=== PATIENT | female | born 1995 | race Caucasian/White ===

== ENCOUNTER → 2021-10-28 | Outpatient (CLI) | payer OTHER ==
[~2021-10-28] MED LIST: AMOX250S5 PO; HYDR473S16 PO; LRT10T; tetracaine suckers PO
--- NOTE | 2021-10-28 17:07 | Diagnostic Imaging Report ---
INDICATION: anatomy survey TECHNIQUE: Multiple real-time grayscale images were obtained over the gravid uterus. COMPARISON: None FINDINGS: There is a single live intrauterine in the breech position. The placenta is anterior in location, and there is no evidence of previa or placental abruption. The heart rate is 143 beats per minute. The amount of a maximum appears visually appropriate The cervix measures 3.7 cm in length. anatomy survey was performed and the following structures are visualized and normal: Four-chamber heart, left ventricular outflow tract, stomach, kidneys, entire spine, cerebellum, cisterna magna, cerebral ventricles, umbilical cord insertion, right ventricular outflow tract, urinary bladder, profile, lips/nose and diaphragm. Due to advanced gestational age, the maternal adnexa are suboptimally evaluated. Biometrical measurements are as follows: Biparietal 4.27 cm, age 19 weeks 0 days. Head circumference 16.89 cm, age 19 weeks 4 days. Abdominal circumference 15.08 cm, age 20 weeks 3 days. Femur length 2.91 cm, age 19 weeks 0 days. Sonographic estimate age: 19 weeks 4 days. Sonographic estimated date of delivery: 03/20/2022. Estimated Weight: 304 gm (+/- 45 gm). LMP percentile: 12%. heart rate: 143 beats per minute. number: 1 of 1. IMPRESSION: Single live intrauterine patency has normal anatomy survey. Dictated by: Dictated on workstation # [id number]
== END ==
LOC: RAD 12:00
PROVIDERS: ATTEND Nurse Practitioner Women's Health
DX: Z34.02 Encounter for supervision of normal first pregnancy, second trimester (principal); Z3A.19 19 weeks gestation of pregnancy
CPT/HCPCS: 76805

== ENCOUNTER 2022-02-14 11:34 | Observation (INO) | payer OTHER ==
[~2022-02-14] VITALS: Ht 160 cm; Wt 73.7 kg
[2022-02-14 12:08] LABS: BILIRUBIN,URINE NEGATIVE (NEGATIVE); CLARITY,URINE CLEAR; COLOR,URINE YELLOW; GLUCOSE, URINE (UA) NEGATIVE (NEGATIVE); KETONES,URINE NEGATIVE (NEGATIVE); LEUKOCYTE ESTERASE ,URINE TRACE (NEGATIVE); NITRITE,URINE NEGATIVE (NEGATIVE); PH,URINE 6.5 (5-9); PROTEIN,URINE NEGATIVE (NEGATIVE)
[2022-02-14] MEDS: LACTATED RINGERS 1,000 ML IV SCH ×2 (12:15→13:20)
[2022-02-14 12:18] LABS: WBC,URINE 0-2 /HPF
[2022-02-14 12:19] LABS: AMORPHOUS SEDIMENT,UR RARE AMOR URATES /LPF; BACTERIA,URINE FEW /HPF; SQUAMOUS EPITHELIAL CELL,UR RARE /HPF
[2022-02-14 12:30] VITALS: BP 138/85
[2022-02-14] MEDS ORDERED: ACETAMINOPHEN 500 MG TAB (TYLENOL) PO PRN (14:30)
[2022-02-14] MEDS ORDERED: D5 LR IV SOLUTION 1,000 ML IV SCH (16:00)
[2022-02-14 16:51] LABS: BASOPHILS % (AUTO) 0 % (0-10); EOSINOPHILS % (AUTO) 0 % (0-10); HEMATOCRIT 31 % (35-52); HEMOGLOBIN 10.5 g/dL (11.5-16.0); LYMPHOCYTES # (AUTO) 1.7 10^3/uL (1.0-4.0); LYMPHOCYTES % (AUTO) 14 % (12-44); MEAN CORPUSCULAR HEMOGLOBIN 29 pg (25-34); MEAN CORPUSCULAR HGB CONC 34 g/dL (32-36); MEAN CORPUSCULAR VOLUME 84 fL (80-99); MEAN PLATELET VOLUME 11.1 fL (9.0-12.2); MONOCYTES # (AUTO) 0.7 10^3/uL (0.0-1.0); MONOCYTES % (AUTO) 6 % (0-12); NEUTROPHILS # (AUTO) 9.9 10^3/uL (1.8-7.8); NEUTROPHILS % (AUTO) 79 % (42-75); PLATELET COUNT 185 10^3/uL (130-400); WHITE BLOOD COUNT 12.5 10^3/uL (4.3-11.0)
--- NOTE | 2022-02-15 08:17 | Physician Query-Final Dx ---
MAYANK02/15/22 0817: Clinic Account Progress/Dx Physician Query: Please give diagnosis Please include # weeks gestation Date of Service Feb 14, 2022 at 11:34 CARMELINA CRISTINA DO 02/16/22 1304: Clinic Account Progress/Dx DIAGNOSIS: Diagnosis 36 week IUP Prolonged latent phase labor MAYANK,FebFeb 15, 2022 08:17 CARMELINA CRISTINA DO Feb 16, 2022 13:04
== END 2022-02-14 18:00 | disposition home or self-care (01) ==
LOC: LDRP 11:34 → WSo 11:34 → LDRP 15:52
PROVIDERS: ADMIT Obstetrics & Gynecology; ATTEND Obstetrics & Gynecology
DX: O63.0 Prolonged first stage (of labor) (principal); Z3A.36 36 weeks gestation of pregnancy
CPT/HCPCS: 36415; 81000; 85025; 86850; 86900; 86901; 87081; 96360; 96361

== ENCOUNTER 2022-02-22 14:20 | Inpatient (IN) | payer OTHER ==
[2022-02-22] VITALS (38 sets, daily range): BP systolic 102–154; BP diastolic 57–88
[~2022-02-22] VITALS: Ht 167 cm; Wt 74.0 kg
[2022-02-22] MEDS ORDERED: LIDOCAINE 1% INJ 20 ML VIAL IJ PRN (15:00)
[2022-02-22] MEDS ORDERED: MINERAL OIL 30 ML UDC TOP PRN (15:00)
[2022-02-22] MEDS ORDERED: D5 LR IV SOLUTION 1,000 ML IV SCH (15:00)
[2022-02-22 15:37] LABS: BASOPHILS % (AUTO) 0 % (0-10); EOSINOPHILS % (AUTO) 0 % (0-10); HEMATOCRIT 33 % (35-52); HEMOGLOBIN 11.2 g/dL (11.5-16.0); LYMPHOCYTES # (AUTO) 1.7 X 10^3 (1.0-4.0); LYMPHOCYTES % (AUTO) 14 % (12-44); MEAN CORPUSCULAR HEMOGLOBIN 29 pg (25-34); MEAN CORPUSCULAR HGB CONC 34 g/dL (32-36); MEAN CORPUSCULAR VOLUME 84 fL (80-99); MONOCYTES # (AUTO) 0.7 X 10^3 (0.0-1.0); MONOCYTES % (AUTO) 5 % (0-12); NEUTROPHILS # (AUTO) 9.6 X 10^3 (1.8-7.8); NEUTROPHILS % (AUTO) 80 % (42-75); PLATELET COUNT 230 10^3/uL (130-400); WHITE BLOOD COUNT 12.1 10^3/uL (4.3-11.0)
[2022-02-22] MEDS ORDERED: LACTATED RINGERS 1,000 ML IV SCH ×2 (15:45→16:45)
[2022-02-22] MEDS ORDERED: fentaNYL INJ 100 MCG/2 ML AMP ONE (16:12)
[2022-02-22] MEDS ORDERED: LIDOCAINE PF 2% 5 ML (XYLOCAINE) VIAL ONE (16:12)
[2022-02-22] MEDS: fentaNYL 2 mcg/ml BUPIVA 0.125 100 ML EPI SCH ×2 (16:30→22:22)
[2022-02-22] MEDS ORDERED: ONDANSETRON 4 MG/2 ML (SDV) Z0FRAN IV PRN (16:45)
[2022-02-22] MEDS ORDERED: METOCLOPRAMIDE INJ 10 MG/2 ML (REGLAN) IV PRN (16:45)
[2022-02-22] MEDS ORDERED: diphenhydrAMINE 50 MG/ML INJ (BENADRYL) IV PRN (16:45)
[2022-02-22] MEDS ORDERED: NALOXONE 0.4 MG/ML 1 ML (NARCAN) VIAL IV PRN ×3 (16:45→23:30)
--- NOTE | 2022-02-22 17:14 | History & Physical-OB ---
OB - Chief Complaint & HPI Date/Time Date of Admission: Date of Admission: Feb 22, 2022 at 2:20 pm Date seen by a Provider: Feb 22, 2022 Time Seen by a Provider: 14:00 Chief Complaint/History OB-Reason for Admission/Chief: Onset of Labor Hx : 1 Hx Para: 0 Expected Date of Delivery: Mar 14, 2022 Gestational Age in Weeks: 37 Gestational Age in Days: 1 Admission Nurse Assessment Rev: Yes History of Labs O pos Antibody neg RI RPR NR HBsAg NR HIV NR GC neg GBS neg Allergies and Home Medications Allergies Coded Allergies: No Known Drug Allergies (Verified Allergy, Unknown, 04/15/08) Patient Home Medication List Home Medication List Reviewed: Yes No Active Prescriptions or Reported Meds OB - History Hx of Present Care: Yes Ultrasounds: Normal mid trimester US Obstetrical Complications: None Medical Complications: None Delivery History Hx Blood Disorders: No Patient Past Medical History n/a OB - Admission Exam Physical Exam HEENT: NCAT Heart: Rhythm Normal Lungs: Clear Abdomen: Gravid Extremities: Normal Reflexes: Normal Cervical Dilatation: 3cm Effacement: 100% Station: 0 Membranes: Intact Heart Rate: 130's Accelerations: Accelerations Present Decelerations: No Decelerations Short Term Variability: Present Intermediate Variability: Average (6-25) Intensity: Firm Labs Laboratory Tests Test 02/22/22 15:15 Range/Units White Blood Count 12.1 H 4.3-11.0 10^3/uL Red Blood Count 3.90 3.80-5.11 10^6/uL Hemoglobin 11.2 L 11.5-16.0 g/dL Hematocrit 33 L 35-52 % Mean Corpuscular Volume 84 80-99 fL Mean Corpuscular Hemoglobin 29 25-34 pg Mean Corpuscular Hemoglobin Concent 34 32-36 g/dL Red Cell Distribution Width 12.8 10.0-14.5 % Platelet Count 230 130-400 10^3/uL Mean Platelet Volume 12.0 9.0-12.2 fL Immature Granulocyte % (Auto) 1 % Neutrophils (%) (Auto) 80 H 42-75 % Lymphocytes (%) (Auto) 14 12-44 % Monocytes (%) (Auto) 5 0-12 % Eosinophils (%) (Auto) 0 0-10 % Basophils (%) (Auto) 0 0-10 % Neutrophils # (Auto) 9.6 H 1.8-7.8 X 10^3 Lymphocytes # (Auto) 1.7 1.0-4.0 X 10^3 Monocytes # (Auto) 0.7 0.0-1.0 X 10^3 Eosinophils # (Auto) 0.0 0.0-0.3 10^3/uL Basophils # (Auto) 0.0 0.0-0.1 10^3/uL Immature Granulocyte # (Auto) 0.1 0.0-0.1 10^3/uL OB - Assessment/Plan/Diagnosis Assessment Assessment: active labor Admission Dx 26 yo @ 37 weeks Active labor GBS neg Admission Status: Inpatient Order (span 2 midnights) Reason for Inpatient Admission: Active labor at 37 weeks Plan Plan: Expectant Management CARMELINA CRISTINA DO Feb 22, 2022 5:14 pm
[2022-02-22] MEDS ORDERED: PREN1TAB79 PO (18:19)
[2022-02-22] MEDS ORDERED: CITA10TA12 PO (18:19)
[2022-02-22] MEDS ORDERED: OXYTOCIN PRE-MIX DRIP 500 ML IV SCH ×2 (19:30→23:30)
[2022-02-22] MEDS ORDERED: CATHETER FLUSH 10 ML SYR IV SCH (22:00)
--- NOTE | 2022-02-22 23:24 | OB Labor & Delivery Record ---
L&D History Date of Service Date of Service: Feb 22, 2022 History Expected Date of Delivery: Mar 14, 2022 Gestational Age in Weeks: 37 Hx : 1 Hx Para: 0 Complications Events: Routine care Operative Indications (Cesarea: N/A-Vaginal Delivery Intrapartal Events: None L&D Stage1 Stage One Onset of Labor - Date: Feb 22, 2022 Monitors and Tracing Monitor Mode: External Heart Rate: 135 Monitor Accelerations: Uniform Monitor Decelerations: Variable Station: 0 Mcc Variability: Average (6-10) Short Term Variability: Present Presentation: Vertex Vital Signs VS - Last 72 Hours, by Label 02/22/22 02/22/22 02/22/22 02/22/22 14:50 15:40 16:15 16:21 Temp 36.7 37.2 Pulse 99 88 97 98 Resp 16 16 18 18 B/P (MAP) 123/77 (92) 128/80 (96) 125/79 (94) Pulse Ox 98 99 99 O2 Delivery Room Air Room Air Room Air Room Air 02/22/22 02/22/22 02/22/22 02/22/22 16:23 16:25 16:27 16:29 Pulse 93 90 87 89 Resp 18 18 B/P (MAP) 128/81 (97) 118/76 (90) 130/77 (94) 118/76 (90) Pulse Ox 99 98 98 98 O2 Delivery Room Air Room Air Room Air 02/22/22 02/22/22 02/22/22 02/22/22 16:30 16:45 17:00 17:15 Pulse 99 100 87 83 Resp 18 18 18 18 B/P (MAP) 129/79 (96) 150/79 (102) 102/57 (72) 133/73 (93) Pulse Ox 98 99 98 100 O2 Delivery Room Air Non Rebreather Non Rebreather O2 Flow Rate 10.00 10.00 02/22/22 02/22/22 02/22/22 02/22/22 17:30 17:45 18:00 18:15 Temp 36.9 Pulse 86 85 103 103 Resp 18 18 18 18 B/P (MAP) 126/84 (98) 131/88 (102) 144/79 (100) 144/79 (100) Pulse Ox 100 100 100 100 O2 Delivery Non Rebreather Non Rebreather Room Air Room Air O2 Flow Rate 10.00 10.00 02/22/22 02/22/22 02/22/22 02/22/22 18:30 18:45 19:00 19:15 Pulse 83 90 107 90 Resp 18 18 18 18 B/P (MAP) 137/81 (99) 135/84 (101) 127/80 (96) 117/78 (91) O2 Delivery Room Air Room Air Room Air Room Air Rupture of Membranes Spontaneous Ruture of Membrane: No Amniotic Membrane Rupture Time: 1639 Amniotic Membrane Fluid Desc.: Clear Vaginal Bleeding Description: Normal Show Induction/Anesthesia Epidural Cath Placement - Time: 1629 Progress/Notes Patient admitted from office in active labor. She had progressed to 3 cm and AROM performed after epidural placed. She then progressed to complete and + 2-3 station with 4 mu pitocin augmentation. L&D Stage2 Stage Two Stage II Date: Feb 22, 2022 Monitors and Tracing Monitor Mode: External Heart Rate: 135 Monitor Accelerations: Uniform Monitor Decelerations: Prolonged Flatwork Feeder Variability: Average (6-10) Short Term Variability: Present Position: Right Occiput Anterior Presentation: Vertex Signs of Distress by FHT Signs of Distress heart rate variables to the 60s were followed by heart rate to the 50s with a very slow return, due to distress decision made to expedite delivery with kiwi vacuum extractor. Suction cup placed over the flexion point on scalp with, mother encouraged to push suction applied to the safe green zone and head delivered over RML with gentle extension of the head and no extension of laceration. Suction released. Anterior/posterior shoulders then delivered without difficulty, the remainder of the delivery was unremarkable. Cord Descript/Complications Cord Vessel Description: 3 Vessels Delivery Type Infant Delivery Method: Low Vacuum Extraction Anterior Shoulder: Left Episiotomy/Perineal Laceration Episiotomy Description: Right Mediolateral Degree (describe repair) RML and left periurethral repaired using 3-0 and 2-0 vicryl suture in usual fashion. Condition of Delivery 1 minute Comment: 8 5 minute Comment: 9 Notes Live male infant weight 6lbs 8 oz Condition of Condition of Infant: Living Exam: No Observed Abnormalities Resuscitation Resuscitation: N/A - Spontaneous Resp L&D Stage3 Stage Three Stage III Date: Feb 22, 2022 Pictocin Pitocin Administration Comment: 30 mu wide open after delivery of placenta Placenta Delivery Placenta Delivery: Spontaneous Delivery Summary Summary Estimated blood loss (mL): 350 Attending at delivery: Carmelina Cristina DO Condition of Delivery Examined: Cervix Examined, Uterus Explored Post Hemorrhage: No Condition of Mother stable Condition of (s) stable CARMELINA CRISTINA DO Feb 22, 2022 23:24
[2022-02-22] MEDS ORDERED: MEASLES,MUMPS,RUBELLA 1 EA INJ SQ ONE (23:30)
[2022-02-22] MEDS ORDERED: BENZOCAINE/MENTHOL (DERMOPLAST) 56 ML CAN TP PRN (23:30)
[2022-02-22] MEDS ORDERED: WITCH HAZEL(TUCKS) 40 EA JAR TOP PRN (23:30)
[2022-02-22] MEDS ORDERED: TETANUS,DIPTH,PERTUSS P/F (BOOSTRIX) 0.5 ML VIAL IM ONE (23:30)
[2022-02-22] MEDS ORDERED: DIBUCAINE 1% OINTMENT 30 GM TUBE TOP PRN (23:30)
[2022-02-23 00:10] VITALS: BP 144/82
[2022-02-23 05:05] VITALS: BP 117/77
[2022-02-23 05:57] LABS: BASOPHILS % (AUTO) 0 % (0-10); EOSINOPHILS % (AUTO) 0 % (0-10); HEMATOCRIT 29 % (35-52); LYMPHOCYTES # (AUTO) 1.8 10^3/uL (1.0-4.0); LYMPHOCYTES % (AUTO) 12 % (12-44); MEAN CORPUSCULAR HEMOGLOBIN 29 pg (25-34); MEAN CORPUSCULAR HGB CONC 34 g/dL (32-36); MEAN CORPUSCULAR VOLUME 84 fL (80-99); MEAN PLATELET VOLUME 11.3 fL (9.0-12.2); MONOCYTES # (AUTO) 1.2 10^3/uL (0.0-1.0); MONOCYTES % (AUTO) 8 % (0-12); NEUTROPHILS # (AUTO) 12.5 10^3/uL (1.8-7.8); NEUTROPHILS % (AUTO) 80 % (42-75); PLATELET COUNT 202 10^3/uL (130-400); WHITE BLOOD COUNT 15.7 10^3/uL (4.3-11.0)
[2022-02-23] MEDS ORDERED: CATHETER FLUSH 10 ML SYR IV SCH (06:00)
[2022-02-23] MEDS: IBUPROFEN 600 MG (MOTRIN) TAB PO SCH ×3 (06:10→18:02)
--- NOTE | 2022-02-23 08:01 | Anesthesia-Regional Post-Op ---
Regional Patient Condition Mental Status: Alert, Oriented x3 Circulation: Same as Pre-Op Headache: Absent Sensation: Full Recovery Motor Block: Absent Post Op Complications Complications None Follow Up Care/Instructions Patient Instructions None needed. Anesthesia/Patient Condition Patient is doing well, no complaints, stable vital signs, no apparent adverse anesthesia problems. No complications reported per nursing. BELA BLANCHARD CRNA Feb 23, 2022 08:00
--- NOTE | 2022-02-23 08:29 | Postpartum Progress Note ---
Note Note Day # 1 Subjective: Patient is without complaints. Ambulating, voiding. Tolerating a regular diet without nausea or vomiting. Normal lochia. Pain is well controlled with oral pain medications. Objective: Physical Exam: General - Alert and oriented, no apparent distress Abdomen - Soft, appropriately tender to palpation, non-distended, fundus firm at umbilicus Extremities - no edema, negative Alicia's bilaterally Assessment: PPD 1 VAVD Acute blood loss anemia Plan: Routine care. Encourage breast feeding. Encourage ambulation. Ferrous sulfate supplementation. Plan for discharge tomorrow Vitals - Labs Vital Signs - I&O Vital Signs Date Time Temp Pulse Resp B/P (MAP) Pulse Ox O2 Delivery O2 Flow Rate FiO2 02/23/22 05:05 36.8 98 16 117/77 (90) 99 Room Air 02/23/22 00:10 103 18 144/82 (102) Room Air 02/22/22 23:55 114 18 154/73 (100) Room Air 02/22/22 23:40 103 18 144/67 (92) Room Air 02/22/22 23:25 105 18 146/65 (92) Room Air 02/22/22 23:10 36.9 111 18 146/70 (95) Room Air 02/22/22 22:45 190 18 136/66 (89) Room Air 02/22/22 22:30 108 16 119/87 (98) Room Air 02/22/22 22:15 36.9 94 16 131/88 (102) Room Air 02/22/22 22:00 86 16 128/82 (97) Room Air 02/22/22 21:45 86 16 128/82 (97) Room Air 02/22/22 21:30 90 16 123/84 (97) Room Air 02/22/22 21:15 108 16 126/77 (93) Room Air 02/22/22 21:00 118 16 119/74 (89) Room Air 02/22/22 20:45 96 16 120/74 (89) Room Air 02/22/22 20:30 88 16 115/66 (82) Room Air 02/22/22 20:15 90 18 111/67 (82) Room Air 02/22/22 20:00 82 18 110/67 (81) Room Air 02/22/22 19:45 90 18 111/65 (80) Room Air 02/22/22 19:30 36.9 85 18 119/69 (86) Room Air 02/22/22 19:15 90 18 117/78 (91) Room Air 02/22/22 19:00 107 18 127/80 (96) Room Air 02/22/22 18:45 90 18 135/84 (101) Room Air 02/22/22 18:30 83 18 137/81 (99) Room Air 02/22/22 18:15 36.9 103 18 144/79 (100) 100 Room Air 02/22/22 18:00 103 18 144/79 (100) 100 Room Air 02/22/22 17:45 85 18 131/88 (102) 100 Non Rebreather 10.00 02/22/22 17:30 86 18 126/84 (98) 100 Non Rebreather 10.00 02/22/22 17:15 83 18 133/73 (93) 100 Non Rebreather 10.00 02/22/22 17:00 87 18 102/57 (72) 98 Non Rebreather 10.00 02/22/22 16:45 100 18 150/79 (102) 99 Room Air 02/22/22 16:30 99 18 129/79 (96) 98 02/22/22 16:29 89 118/76 (90) 98 Room Air 02/22/22 16:27 87 18 130/77 (94) 98 02/22/22 16:25 90 118/76 (90) 98 Room Air 02/22/22 16:23 93 18 128/81 (97) 99 Room Air 02/22/22 16:21 98 18 125/79 (94) 99 Room Air 02/22/22 16:15 97 18 128/80 (96) 99 Room Air 02/22/22 15:40 37.2 88 16 123/77 (92) Room Air 02/22/22 14:50 36.7 99 16 98 Room Air I & O 02/23/22 07:00 Intake Total 1000 ml Balance 1000 ml Labs Laboratory Tests 02/22/22 15:15: White Blood Count 12.1H, Red Blood Count 3.90, Hemoglobin 11.2L, Hematocrit 33L, Mean Corpuscular Volume 84, Mean Corpuscular Hemoglobin 29, Mean Corpuscular Hemoglobin Concent 34, Red Cell Distribution Width 12.8, Platelet Count 230, Mean Platelet Volume 12.0, Immature Granulocyte % (Auto) 1, Neutrophils (%) (Auto) 80H, Lymphocytes (%) (Auto) 14, Monocytes (%) (Auto) 5, Eosinophils (%) (Auto) 0, Basophils (%) (Auto) 0, Neutrophils # (Auto) 9.6H, Lymphocytes # (Auto) 1.7, Monocytes # (Auto) 0.7, Eosinophils # (Auto) 0.0, Basophils # (Auto) 0.0, Immature Granulocyte # (Auto) 0.1, Syphilis Serology Non-Reactive 02/23/22 05:50: White Blood Count 15.7H, Red Blood Count 3.47L, Hemoglobin 10.0L, Hematocrit 29L , Mean Corpuscular Volume 84, Mean Corpuscular Hemoglobin 29, Mean Corpuscular Hemoglobin Concent 34, Red Cell Distribution Width 12.7, Platelet Count 202, Mean Platelet Volume 11.3, Immature Granulocyte % (Auto) 1, Neutrophils (%) (Auto) 80H, Lymphocytes (%) (Auto) 12, Monocytes (%) (Auto) 8, Eosinophils (%) (Auto) 0, Basophils (%) (Auto) 0, Neutrophils # (Auto) 12.5H, Lymphocytes # (Auto) 1.8, Monocytes # (Auto) 1.2H, Eosinophils # (Auto) 0.0, Basophils # (Auto) 0.0, Immature Granulocyte # (Auto) 0.1 CARMELINA CRISTINA DO Feb 23, 2022 08:29
[2022-02-23 08:30] VITALS: BP 120/73
[2022-02-23] MEDS: FERROUS SULF 325 MG (IRON) TAB PO SCH (08:32)
[2022-02-23] MEDS: PRENATAL VITAMIN 1 EA TAB PO SCH (08:32)
[2022-02-23] MEDS: DOCUSATE SODIUM 100 MG (COLACE) CAP PO SCH ×2 (08:32→21:05)
[2022-02-23] MEDS: HYDROcodone/APAP 5 MG/325 MG (LORTAB) TAB PO PRN ×2 (11:04→18:02)
[2022-02-23 12:00] VITALS: BP 119/76
[2022-02-23 16:00] VITALS: BP 117/69
--- NOTE | 2022-02-23 16:31 | Discharge Inst-Women's Service ---
Discharge Inst-Women's Serv Depart Medication/Instructions New, Converted or Re-Newed RX: Transmitted to Pharmacy Final Diagnosis PPD 2 VAVD Problems Reviewed?: Yes Consults/Follow Up Additional Follow Up: Yes Orders/Referrals Dr. Cristina in 6 weeks Activity Activity: Activity as Tolerated Driving Instructions: No Driving for 1 Week NO SMOKING: NO SMOKING Nothing Inside Vagina: No Douching, No Troup, No Tampons Diet Discharge Diet: No Restrictions Symptoms to Report to : Bleeding Excessive, Pain Increased, Fever Over 101 Degrees F, Vaginal Bleeding Increase, Questions/Concerns For Any Problems or Questions: Contact Your Physician CARMELINA CRISTINA DO Feb 23, 2022 16:31
[2022-02-23] MEDS ORDERED: ACHD5005 PO (16:33)
[2022-02-23] MEDS ORDERED: BENZ78AE5 TP (16:33)
[2022-02-23] MEDS ORDERED: FERR325T24 PO (16:33)
[2022-02-23] MEDS ORDERED: IBUP-844 PO (16:33)
[2022-02-23] MEDS ORDERED: DIBU30OI TOP (16:33)
[2022-02-23] MEDS ORDERED: DOCU100C37 PO (16:33)
[2022-02-23 19:37] VITALS: BP 119/68
[2022-02-24 01:16] VITALS: BP 113/63
[2022-02-24] MEDS: IBUPROFEN 600 MG (MOTRIN) TAB PO SCH ×2 (01:16→07:44)
--- NOTE | 2022-02-24 07:02 | Postpartum Progress Note ---
CORINE COELHO 02/24/22 0702: Note Note Day # 2 Subjective: Patient is without complaints. Ambulating, voiding. Tolerating a regular diet without nausea or vomiting. Normal lochia. Pain is well controlled with oral pain medications. Objective: Physical Exam: General - Alert and oriented, no apparent distress Abdomen - Soft, appropriately tender to palpation, non-distended, fundus firm at umbilicus Extremities - no edema, negative Alicia's bilaterally Assessment: PPD 2 VAVD Acute blood loss anemia Recovering well, hemodynamically stable Plan: Routine care. Encourage breast feeding. Encourage ambulation. Ferrous sulfate supplementation. Plan for discharge today. Vitals - Labs Vital Signs - I&O Vital Signs Date Time Temp Pulse Resp B/P (MAP) Pulse Ox O2 Delivery O2 Flow Rate FiO2 02/24/22 01:16 36.0 102 16 113/63 (80) 98 Room Air 02/23/22 19:37 36.4 93 18 119/68 (85) 100 Room Air 02/23/22 16:00 36.0 86 18 117/69 (85) 99 Room Air 10.00 10.00 02/23/22 12:00 36.1 106 18 119/76 (90) 98 Room Air 02/23/22 08:30 36.3 98 18 120/73 (89) 98 Room Air CARMELINA CRISTINA DO 02/24/22 0728: Note Note Verification and Attestation of Medical Student E/M Service A medical student performed and documented this service in my presence. I reviewed and verified all information documented by the medical student and made modifications to such information, when appropriate. I personally performed the physical exam and medical decision making. Carmelina Cristina, Feb 24, 2022,07:28 CORINE COELHO Feb 24, 2022 07:02 CARMELINA CRISTINA DO Feb 24, 2022 07:28
[2022-02-24 07:44] VITALS: BP 112/63
[2022-02-24] MEDS: PRENATAL VITAMIN 1 EA TAB PO SCH (07:44)
[2022-02-24] MEDS: DOCUSATE SODIUM 100 MG (COLACE) CAP PO SCH (07:44)
[2022-02-24] MEDS: FERROUS SULF 325 MG (IRON) TAB PO SCH (07:44)
[2022-02-24 12:45] VITALS: BP 112/63
== END 2022-02-24 12:45 | disposition home or self-care (01) | DRG 806 ==
LOC: LDRP 14:20
PROVIDERS: ADMIT Obstetrics & Gynecology; ATTEND Obstetrics & Gynecology
PROC: 10D07Z6 Extraction of Products of Conception, Vacuum, Via Natural or Artificial Opening (ICD-10-PCS; principal; 2022-02-22)
PROC: 0UQMXZZ Repair Vulva, External Approach (ICD-10-PCS; 2022-02-22)
PROC: 10907ZC Drainage of Amniotic Fluid, Therapeutic from Products of Conception, Via Natural or Artificial Opening (ICD-10-PCS; 2022-02-22)
DX: O71.82 Other specified trauma to perineum and vulva (principal); D62 Acute posthemorrhagic anemia; Z37.0 Single live birth; Z3A.37 37 weeks gestation of pregnancy; O90.81 Anemia of the puerperium
CPT/HCPCS: 36415; 85025; 86780; 86850; 86900; 86901; 99212